=== PATIENT | male | born 2000 | race Caucasian/White ===

== ENCOUNTER 2023-09-24 19:15 | Emergency (ER) | payer OTHER ==
[~2023-09-24] VITALS: Ht 190.5 cm; Wt 108.9 kg
[2023-09-24 19:20] VITALS: BP 128/75; PULSE 86; RESP 16; TEMP 99.7; O2SAT 98
[2023-09-24] MEDS ORDERED: SUD30 PO (20:00)
[2023-09-24] MEDS ORDERED: [UNRECOGNIZED DRUG - CODE] PO (20:00)
[2023-09-24] MEDS ORDERED: FLONAS NS (20:00)
[2023-09-24 20:23] LABS: FLU A ANTIGEN negative (NEGATIVE); FLU B ANTIGEN NEGATIVE (NEGATIVE)
== END 2023-09-24 20:19 | disposition home or self-care (01) ==
LOC: MED 19:15
DX: J30.9 Allergic rhinitis, unspecified (principal); Z20.822 Contact with and (suspected) exposure to COVID-19; R09.82 Postnasal drip; Z79.899 Other long term (current) drug therapy
CPT/HCPCS: 87081; 99283

== ENCOUNTER 2023-10-24 20:25 | Emergency (ER) | payer OTHER ==
[~2023-10-24] VITALS: Ht 190.5 cm; Wt 108.9 kg
[~2023-10-24 20:25] MED LIST: FLONAS NS; SUD30 PO; [UNRECOGNIZED DRUG - CODE] PO
[2023-10-24 20:40] VITALS: BP 117/77; PULSE 83; RESP 18; TEMP 98.2; O2SAT 98
[2023-10-24 21:12] VITALS: O2SAT 99
[2023-10-24] MEDS ORDERED: METH4TAB1 PO (22:46)
[2023-10-24] MEDS ORDERED: AMOX1TAB8 PO (22:46)
[2023-10-24 23:03] VITALS: BP 131/76; PULSE 69; RESP 17; TEMP 98.1; O2SAT 99
== END 2023-10-24 23:03 | disposition home or self-care (01) ==
LOC: MED 20:25
DX: H68.002 Unspecified Eustachian salpingitis, left ear (principal); H66.92 Otitis media, unspecified, left ear; Z79.899 Other long term (current) drug therapy
CPT/HCPCS: 99283

== ENCOUNTER 2023-10-28 17:35 | Outpatient (CLI) | payer OTHER ==
[~2023-10-28 17:35] MED LIST changes: +AMOX1TAB8 PO; +METH4TAB1 PO
== END 2023-10-28 19:48 | disposition home or self-care (01) ==
LOC: MCT 17:35
PROVIDERS: ATTEND Family Medicine
DX: R51.9 Headache, unspecified (principal)
CPT/HCPCS: 70450

== ENCOUNTER 2024-01-16 07:55 | Emergency (ER) | payer OTHER ==
[~2024-01-16] VITALS: Ht 188 cm; Wt 90.7 kg
[2024-01-16 07:59] VITALS: BP 112/71; PULSE 85; RESP 16; TEMP 98; O2SAT 98
[2024-01-16 08:00] VITALS: O2SAT 98
[2024-01-16 08:51] LABS: AMPHETAMINE, URINE NEGATIVE ng/ml (NEG <=1000); BARBITURATE, URINE NEGATIVE ng/ml (NEG <=200); BENZODIAZEPINE, URINE NEGATIVE ng/mL (NEG <=200); CANNABINOID, URINE NEGATIVE ng/mL (NEG <=50); COCAINE, URINE NEGATIVE ng/mL (NEG <=300); OPIATE, URINE NEGATIVE ng/mL (NEG <=2000); PHENCYCLIDINE SCREEN,URINE NEGATIVE ng/mL (NEG <=25)
== END 2024-01-16 09:00 | disposition home or self-care (01) ==
LOC: MED 07:55
DX: F32.9 Major depressive disorder, single episode, unspecified (principal); F41.9 Anxiety disorder, unspecified; Z79.899 Other long term (current) drug therapy
CPT/HCPCS: 80305; 99283